=== PATIENT | female | born 1945 ===

== ENCOUNTER 2019-03-18 08:32 | Outpatient (CLI) | payer OTHER | END 2019-03-18 08:39 | disposition home or self-care (01) | LOC: SONOGRAMA 08:32 | DX: E04.1 Nontoxic single thyroid nodule (principal) ==

== ENCOUNTER 2019-05-20 10:54 | Outpatient (CLI) | payer OTHER | END 2019-05-20 10:59 | disposition home or self-care (01) | LOC: TOM 10:54 | DX: K56.600 Partial intestinal obstruction, unspecified as to cause (principal); K56.50 Intestinal adhesions [bands], unspecified as to partial versus complete obstruction; R19.05 Periumbilic swelling, mass or lump; Z86.010 Personal history of colon polyps; E04.1 Nontoxic single thyroid nodule | CPT/HCPCS: 70491; 74261; Q9965 ==

== ENCOUNTER 2024-01-21 08:37 | Outpatient (CLI) | payer OTHER | END 2024-01-21 08:41 | disposition home or self-care (01) | LOC: SONOGRAMA 08:37 | PROVIDERS: ATTEND Pathology Anatomic Pathology | DX: D34 Benign neoplasm of thyroid gland (principal); E07.89 Other specified disorders of thyroid; E04.1 Nontoxic single thyroid nodule ==